=== PATIENT | male | born 1955 | race American Indian/Alaskan Native ===

== ENCOUNTER 2017-07-21 08:54 | Outpatient (CLI) | payer OTHER ==
--- NOTE | 2017-07-21 10:18 | XRay Report ---
RIGHT HIP RADIOGRAPHS INDICATION: Rheumatoid arthritis. COMPARISON: None similar. FINDINGS: AP pelvic and frog-leg right hip projections demonstrate grossly intact pelvic articulation. Normal femoral head contours bilaterally, well located within the acetabula. Approximately 1.1 x 0.5 cm ossific density noted at the right lateral acetabular margin with a similar, approximately 0.6 cm on the left, possibly degenerative. Mild iliac enthesophytes. Lower lumbar degenerative changes with moderate disc narrowing and mild degenerative spurring. Nonobstructive bowel gas pattern. CONCLUSION: No acute radiographic abnormality with few degenerative changes noted, as above. Thank you for the opportunity to participate in this patient's care.
--- NOTE | 2017-07-21 10:27 | XRay Report ---
LUMBAR SPINE RADIOGRAPHS: INDICATION: Rheumatoid arthritis. COMPARISON: None similar at this institution. FINDINGS: AP and lateral lumbar spine radiographs somewhat technically limited, though demonstrate slight dextrocurvature apex about the thoracolumbar junction. Multilevel spinal degenerative osteophytes, greatest lumbar. Lumbar disc narrowing from L2-L5, asymmetric at some levels also noted, greatest at L4-L5 with adjacent sclerosis. Intact SI joints. Nonobstructive bowel gas pattern. Mild bilateral hip degenerative changes also possible. CONCLUSION: Various bony degenerative changes, as above. Thank you for the opportunity to participate in this patient's care.
--- NOTE | 2017-07-21 17:18 | XRay Report ---
FINAL REPORT PROCEDURE: Left hand. TECHNIQUE: AP and lateral views. HISTORY: Rheumatoid arthritis. COMPARISON: No prior studies are available for comparison. FINDINGS: The bones appear intact without fracture or dislocation. The joint spaces appear satisfactory. There are no definite signs of rheumatoid arthritis. The soft tissues are unremarkable. IMPRESSION: No significant abnormality.
== END 2017-07-21 08:55 | disposition home or self-care (01) ==
LOC: XRAY 08:54
PROVIDERS: ATTEND Internal Medicine
DX: M47.897 Other spondylosis, lumbosacral region (principal); M76.891 Other specified enthesopathies of right lower limb, excluding foot; M16.11 Unilateral primary osteoarthritis, right hip; M47.896 Other spondylosis, lumbar region; I12.9 Hypertensive chronic kidney disease with stage 1 through stage 4 chronic kidney disease, or unspecified chronic kidney disease; N18.4 Chronic kidney disease, stage 4 (severe); E11.22 Type 2 diabetes mellitus with diabetic chronic kidney disease; E11.40 Type 2 diabetes mellitus with diabetic neuropathy, unspecified; F32.9 Major depressive disorder, single episode, unspecified; D64.9 Anemia, unspecified; E78.00 Pure hypercholesterolemia, unspecified
CPT/HCPCS: 72100

== ENCOUNTER 2021-09-29 11:13 | Emergency (ER) | payer MEDICARE ==
[2021-09-29 12:55] LABS: Basophils # (Auto) 0.1 K/mm3 (0.0-0.1); Basophils % (Auto) 1.2 % (0.0-1.8); Eosinophils # (Auto) 0.1 K/mm3 (0.0-0.4); Eosinophils % (Auto) 1.4 % (0.0-4.3); Hematocrit 33.3 % (35.5-45.6); Hemoglobin 10.8 gm/dl (11.8-15.2); Lymphocytes # (Auto) 0.5 K/mm3 (1.2-5.4); Lymphocytes % (Auto) 9.6 % (13.4-35.0); Mean Corpuscular HGB Conc 32 % (32-34); Mean Corpuscular Volume 84 fl (84-94); Monocytes # (Auto) 0.6 K/mm3 (0.0-0.8); Monocytes % (Auto) 11.4 % (0.0-7.3); Red Blood Count 3.98 M/mm3 (3.65-5.03); Red Cell Distribution Width 19.8 % (13.2-15.2)
--- NOTE | 2021-09-29 12:57 | Cat Scan Report ---
CT HEAD/BRAIN WO CON INDICATION / CLINICAL INFORMATION: 65 years Male; Altered Mental Status. TECHNIQUE: Routine CT head without contrast. All CT scans at this location are performed using CT dos e reduction for ALARA by means of automated exposure control. COMPARISON: None. FINDINGS: BRAIN / INTRACRANIAL CONTENTS: No acute hemorrhage, mass effect, midline shift, hydrocephalus, or acu te, large territorial infarct. Mild cerebral and cerebellar atrophy. There are moderate areas of decreased attenuation in the white matter of the cerebral hemispheres. Th telly are nonspecific findings and may be related to microangiopathy (hypertension, diabetes, atheroscl erosis), given the patient's age. It might be difficult to evaluate for small areas of ischemia witho ut diffusion imaging by MRI. CRANIOCERVICAL JUNCTION: No significant abnormality. ORBITS: No significant abnormality of visualized orbits. SINUSES / MASTOIDS: Visualized paranasal sinuses and mastoid air cells are essentially clear. Endosco pic sinus surgery changes are suspected in the ethmoid sinuses. ADDITIONAL FINDINGS: Atherosclerotic disease is seen in the anterior and posterior circulation. IMPRESSION: No acute intracranial process is identified. Volume loss and nonspecific chronic white matter changes. Signer Name: Jasper Metz Jr, MD Signed: 09/29/2021 12:53 PM Workstation Name: [id number]
[2021-09-29 12:58] LABS: Platelet Count 98 K/mm3 (140-440)
[2021-09-29 13:00] LABS: INR 1.03 (0.87-1.13)
[2021-09-29 13:22] LABS: Albumin 4.3 g/dL (3.9-5)
[2021-09-29 13:40] LABS: Chol/HDL Ratio 1.91 %
--- NOTE | 2021-09-29 13:45 | XRay Report ---
CHEST 1 VIEW 09/29/2021 12:16 PM INDICATION / CLINICAL INFORMATION: Altered Mental Status. COMPARISON: None available. FINDINGS: SUPPORT DEVICES: None. HEART / MEDIASTINUM: No significant abnormality. LUNGS / PLEURA: No significant pulmonary or pleural abnormality. No pneumothorax. ADDITIONAL FINDINGS: No significant additional findings. IMPRESSION: 1. No acute findings. Signer Name: Dima Moreno DO Signed: 09/29/2021 1:40 PM Workstation Name: [email or web address]
--- NOTE | 2021-09-29 16:02 | Emergency Department Report ---
ED General Adult HPI - General Chief complaint: Altered Mental Status Stated complaint: DISORIENTED Time Seen by Provider: 09/29/21 11:45 Source: EMS Mode of arrival: Stretcher Limitations: No Limitations - History of Present Illness Initial comments: MOTHER STATES HE IS NOT ACTING LIKE HIMSELF-LAST DIALYSED 09/27 pt is 65 years ld DM HTN with CRD dialysis Wednesday mother wanted him to be assessed because he didn;t get dilaysed on wednesday and he has been acting weird, today he is awake alert no complaints doesn;t report any complaints , -: Gradual, days(s) Severity scale (0 -10): 0 Improves with: none Worsens with: none Associated Symptoms: denies: denies other symptoms, confusion, chest pain, headaches, loss of appetite, malaise - Related Data Allergies Allergy/AdvReac Type Severity Reaction Status Date / Time No Known Allergies Allergy Unverified 09/29/21 11:28 ED Review of Systems ROS: Stated complaint: DISORIENTED Other details as noted in HPI Constitutional: denies: chills, fever Eyes: denies: eye pain, eye discharge, vision change ENT: denies: ear pain, throat pain Respiratory: denies: cough, shortness of breath, wheezing Cardiovascular: denies: chest pain, palpitations Endocrine: no symptoms reported Gastrointestinal: denies: abdominal pain, nausea, diarrhea Genitourinary: denies: urgency, dysuria Musculoskeletal: denies: back pain, joint swelling, arthralgia Skin: denies: rash, lesions Neurological: denies: headache, weakness, paresthesias Psychiatric: denies: anxiety, depression Hematological/Lymphatic: denies: easy bleeding, easy bruising ED Past Medical Hx - Past Medical History Previous Medical History?: Yes Hx Hypertension: Yes Hx Renal Disease: Yes ED Physical Exam - General Limitations: No Limitations General appearance: alert, in no apparent distress - Head Head exam: Present: atraumatic, normocephalic - Eye Eye exam: Present: normal appearance - ENT ENT exam: Present: mucous membranes moist - Neck Neck exam: Present: normal inspection - Respiratory Respiratory exam: Present: normal lung sounds bilaterally. Absent: respiratory distress - Cardiovascular Cardiovascular Exam: Present: regular rate, normal rhythm. Absent: systolic murmur, diastolic murmur, rubs, gallop - GI/Abdominal GI/Abdominal exam: Present: soft, normal bowel sounds - Rectal Rectal exam: Present: deferred - Extremities Exam Extremities exam: Present: normal inspection - Back Exam Back exam: Present: normal inspection - Neurological Exam Neurological exam: Present: alert, oriented X3 - Psychiatric Psychiatric exam: Present: normal affect, normal mood - Skin Skin exam: Present: warm, dry, intact, normal color. Absent: rash ED Course Vital Signs 09/29/21 09/29/21 09/29/21 11:22 11:45 12:01 Temperature 98.0 F Pulse Rate 88 96 H Respiratory 16 22 Rate Blood Pressure 185/98 Blood Pressure 172/98 [Right] O2 Sat by Pulse 97 98 95 Oximetry 09/29/21 09/29/21 09/29/21 12:15 12:30 12:45 Temperature Pulse Rate 82 75 76 Respiratory 16 14 17 Rate Blood Pressure 178/96 163/92 163/92 Blood Pressure [Right] O2 Sat by Pulse 95 97 99 Oximetry 09/29/21 09/29/21 09/29/21 13:01 13:15 13:31 Temperature Pulse Rate 78 82 77 Respiratory 17 14 19 Rate Blood Pressure 139/101 168/99 172/100 Blood Pressure [Right] O2 Sat by Pulse 95 93 93 Oximetry 09/29/21 09/29/21 09/29/21 13:45 14:01 14:15 Temperature Pulse Rate 76 83 81 Respiratory 16 20 13 Rate Blood Pressure 182/93 180/109 179/102 Blood Pressure [Right] O2 Sat by Pulse 97 91 96 Oximetry ED Medical Decision Making - Lab Data Result diagrams: 09/29/21 12:30 09/29/21 12:30 - EKG Data -: EKG Interpreted by Wi EKG shows normal: sinus rhythm Rate: normal - EKG Data Interpretation: no acute changes - Radiology Data Radiology results: report reviewed, image reviewed - Medical Decision Making work up has been consistantw ith CRF, trope levated no chest pain ekg non ischemia , repoeat trop is lower , no evidence of fluids iverload, will be dialysed tomorrow Critical care attestation.: If time is entered above; I have spent that time in minutes in the direct care of this critically ill patient, excluding procedure time. ED Disposition Clinical Impression: CRF (chronic renal failure) Disposition: 01 HOME / SELF CARE / HOMELESS Is pt being admited?: No Does the pt Need Aspirin: No Condition: Stable Instructions: Chronic Kidney Disease, Adult, [id number] Referrals: PRIMARY CARE, [Primary Care Provider] - 3-5 Days
[2021-09-29 16:21] VITALS: BP 174/103
--- NOTE | 2021-09-30 10:25 | Electrocardiograph Report ---
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
== END 2021-09-29 16:41 | disposition home or self-care (01) ==
LOC: ED 11:13
DX: I12.9 Hypertensive chronic kidney disease with stage 1 through stage 4 chronic kidney disease, or unspecified chronic kidney disease (principal); N18.9 Chronic kidney disease, unspecified
CPT/HCPCS: 36415; 70450; 71045; 80053; 80061; 82140; 82550; 84484; 85025; 85610; 93005; 99284